=== PATIENT | female | born 1990 | race Caucasian/White ===

== ENCOUNTER 2016-08-22 18:09 | Emergency (ER) | payer BC, OTHER ==
[~2016-08-22] VITALS: Ht 149.9 cm; Wt 63.9 kg
[~2016-08-22 18:09] MED LIST: CARV3.122 PO; OXCA300T PO
[2016-08-22 18:17] VITALS: TEMP 36.5; Ht 149.9 cm; Wt 63.9 kg
[2016-08-22] MEDS ORDERED: SODIUM CHLORIDE 0.9% 1000ML 500 ML IV STA (18:32)
[2016-08-22 18:41] LABS: BASO % 0.2 %; BASO ABS # 0.02 K/uL (0-0.2); COMPLETE YES; EOS % 1.4 %; HEMATOCRIT 38.6 % (37-47); IG% 0.5 %; LYMPH % 28.9 %; MEAN CORPUSCULAR HEMOGLOBIN 27.8 pg (25-34); MEAN CORPUSCULAR HGB CONC 33.9 g/dl (32-36); MONO % 5.7 %; NEUT % 63.3 %; PLATELET COUNT 304 K/uL (130-400); RED BLOOD COUNT 4.71 M/uL (4.2-5.4); WHITE BLOOD COUNT 10.72 K/uL (4.8-10.8)
[2016-08-22] MEDS ORDERED: PREN1TAB51 PO (18:49)
[2016-08-22] MEDS ORDERED: METO50TA16 PO (18:49)
[2016-08-22] MEDS ORDERED: IBUP-1050 PO (18:53)
[2016-08-22 18:57] LABS: BUN/CREATININE RATIO 25.5 (10-20); CALCIUM 9.5 mg/dl (8.5-10.1); CREATININE 0.64 mg/dl (0.60-1.20); POTASSIUM 3.6 mmol/L (3.5-5.1)
[2016-08-22 19:00] LABS: ALB/GLOB RATIO 1.3 (0.9-2)
--- NOTE | 2016-08-22 19:08 | EMERGENCY ROOM VISIT NOTE ---
History Report prepared by Gregory: Sinan Camarena Under the Supervision of: Dr. Flex Cruz M.D. First contact with patient: 18:27 Chief Complaint: FLANK PAIN Stated Complaint: RT SIDED ABD/BACK PAIN History of Present Illness The patient is a 26 year old female who presents to the Emergency Room with complaints of worsening RLQ abdominal pain beginning four days ago. She states that her pain radiates into her side and right lower back. She has a history of multiple kidney stones, and ovarian cysts. The patient denies any vaginal discharge, fevers, vomiting, urinary symptoms. She rates her current pain as a 7 /10. She has taken Tylenol and Motrin for her symptoms but has seen no relief. The patient describes her pain as "sharp". She notes that she is currently breast feeding. She also complains of nausea. The patient notes that she began getting her menstrual period again 3 months ago, and states that her periods since have involved very heavy bleeding. She has a history of a tubal ligation. Source of History: patient Onset: Four days ago Position: abdomen (RLQ) Symptom Intensity: 7/10 Quality: sharp Timing: worsening Associated Symptoms: + nausea, No fevers, No vomiting, No urinary symptoms Note: The patient denies any vaginal discharge. Review of Systems See HPI for pertinent positives & negatives. A total of 10 systems reviewed and were otherwise negative. Past Medical & Surgical Medical Problems: (1) Seizure Surgical Problems: (1) H/O adenoidectomy (2) Hx of section (3) Hx of tonsillectomy (4) [place] teeth extracted Family History Cancer Diabetes mellitus Gallbladder disease Heart disease Hypertension Kidney disease Kidney stones Lung disease Social History Smoking Status: Former Smoker Marital Status: single Housing Status: unknown Occupation Status: employed Current/Historical Medications Scheduled Metoprolol Tartrate (Lopressor) (Lopressor), 50 MG PO DAILY Vit W/ Ferrous Fumara (Pnv Plus Multivi), 1 TAB PO DAILY Scheduled PRN Ibuprofen (Advil), 600 MG PO Q6H PRN for Pain Allergies Coded Allergies: Amoxicillin (Verified Allergy, Intermediate, HIVES, 08/22/16) Cefaclor (Verified Allergy, Intermediate, HIVES, 08/22/16) Clavulanic Acid (Verified Allergy, Intermediate, HIVES, 08/22/16) Zolpidem (Verified Allergy, Intermediate, HALLUCINATIONS, 08/22/16) Cephalexin (Verified Allergy, Unknown, Hives, 08/22/16) Physical Exam Vital Signs Date Time Temp Pulse Resp B/P (MAP) Pulse Ox O2 Delivery O2 Flow Rate FiO2 08/22/16 20:53 80 18 113/85 100 Room Air 08/22/16 18:17 36.5 86 18 128/76 99 Room Air Physical Exam GENERAL: Patient is in no acute distress. HEENT: No acute trauma, normocephalic atraumatic, mucous membranes moist, no nasal congestion, no scleral icterus. NECK: No stridor, no adenopathy, no meningismus, trachea is midline. LUNGS: Clear to auscultation bilaterally, no wheeze, no rhonchi, breath sounds equal. HEART: Without murmurs gallops or rubs, regular rate and rhythm. ABDOMEN: Soft, bowel sounds positive, no hernias, no peritonitis, mildly tender in the right low pelvis. BACK: No flank discomfort with percussion. EXTREMITIES: No cyanosis or edema, full range of motion of all the joints without pain or difficulty, no signs for acute trauma. NEUROLOGIC: Oriented x 3, no acute motor or sensory deficits, no focal weakness. SKIN: No rash, no jaundice, no diaphoresis. Medical Decision & Procedures ER Provider Diagnostic Interpretation: US results as stated below per my review and radiologist interpretation: ULTRASOUND KIDNEYS AND BLADDER FINDINGS: Kidneys: The kidneys are normal in size and echotexture. The right kidney measures 11.7 x 4.6 x 5.6 cm and the left kidney measures 12.7 x 5.6 x 6.0 cm. There is no hydronephrosis. No shadowing renal calculi are identified. There is no sonographic evidence of contour deforming renal mass lesion. No perinephric fluid is identified. Bladder: The bladder is normal in appearance. Bilateral ureteral jets were seen. IMPRESSION: 1. The kidneys are normal in size and without hydronephrosis. 2. The bladder is normal in appearance Electronically signed by: Flex Carbajal M.D. ULTRASOUND OF THE PELVIS FINDINGS: Uterus: The uterus is normal in size and echotexture, measuring 10.0 x 4.2 x 5.7 cm. Small Nabothian cysts are incidentally noted. Endometrium: The endometrium is thickened, measuring up to 1.5 cm. Endometrium is otherwise normal in appearance. Ovaries: The ovaries are normal in size and morphology. The right ovary measures 4.5 x 2.6 x 3.3 cm and the left ovary measures 4.2 x 1.6 x 2.1 cm. Numerous small ovarian follicles are noted. Normal Doppler waveforms are shown within both ovaries. Pelvis: There is trace free fluid in the cul-de-sac. No concerning adnexal lesion is seen. IMPRESSION: 1. No acute sonographic abnormality is identified in the pelvis. 2. The endometrial stripe is thickened measuring up to 1.5 cm. This is likely related to the phase of the patient's cycle. 3. Trace free fluid in cul-de-sac is likely within physiologic limits. Electronically signed by: Flex Carbajal M.D. Laboratory Results 08/22/16 18:30 Red Blood Count 4.71, Mean Corpuscular Volume 82.0, Mean Corpuscular Hemoglobin 27.8, Mean Corpuscular Hemoglobin Concent 33.9, Mean Platelet Volume 10.0, Neutrophils (%) (Auto) 63.3, Lymphocytes (%) (Auto) 28.9, Monocytes (%) (Auto) 5.7, Eosinophils (%) (Auto) 1.4, Basophils (%) (Auto) 0.2, Neutrophils # (Auto) 6.79, Lymphocytes # (Auto) 3.10, Monocytes # (Auto) 0.61, Eosinophils # (Auto) 0.15, Basophils # (Auto) 0.02 08/22/16 18:30 Test 08/22/16 18:30 08/22/16 19:00 White Blood Count 10.72 K/uL (4.8-10.8) Red Blood Count 4.71 M/uL (4.2-5.4) Hemoglobin 13.1 g/dL (12.0-16.0) Hematocrit 38.6 % (37-47) Mean Corpuscular Volume 82.0 fL (80-100) Mean Corpuscular Hemoglobin 27.8 pg (25-34) Mean Corpuscular Hemoglobin Concent 33.9 g/dl (32-36) Platelet Count 304 K/uL (130-400) Mean Platelet Volume 10.0 fL (7.4-10.4) Neutrophils (%) (Auto) 63.3 % Lymphocytes (%) (Auto) 28.9 % Monocytes (%) (Auto) 5.7 % Eosinophils (%) (Auto) 1.4 % Basophils (%) (Auto) 0.2 % Neutrophils # (Auto) 6.79 K/uL (1.4-6.5) Lymphocytes # (Auto) 3.10 K/uL (1.2-3.4) Monocytes # (Auto) 0.61 K/uL (0.11-0.59) Eosinophils # (Auto) 0.15 K/uL (0-0.5) Basophils # (Auto) 0.02 K/uL (0-0.2) RDW Standard Deviation 39.6 fL (36.4-46.3) RDW Coefficient of Variation 13.1 % (11.5-14.5) Immature Granulocyte % (Auto) 0.5 % Immature Granulocyte # (Auto) 0.05 K/uL (0.00-0.02) Anion Gap 10.0 mmol/L (3-11) Est Creatinine Clear Calc Drug Dose 109.2 ml/min Estimated GFR () 143.7 Estimated GFR (Non- 124.0 BUN/Creatinine Ratio 25.5 (10-20) Calcium Level 9.5 mg/dl (8.5-10.1) Total Bilirubin 0.2 mg/dl (0.2-1) Aspartate Amino Transf (AST/SGOT) 10 U/L (15-37) Alanine Aminotransferase (ALT/SGPT) 19 U/L (12-78) Alkaline Phosphatase 104 U/L (45-117) Total Protein 7.9 gm/dl (6.4-8.2) Albumin 4.4 gm/dl (3.4-5.0) Globulin 3.5 gm/dl (2.5-4.0) Albumin/Globulin Ratio 1.3 (0.9-2) Lipase 136 U/L (73-393) Urine Color YELLOW Urine Appearance CLEAR (CLEAR) Urine pH 5.5 (4.5-7.5) Urine Specific [place] 1.010 (1.000-1.030) Urine Protein NEG (NEG) Urine Glucose (UA) NEG (NEG) Urine Ketones NEG (NEG) Urine Occult Blood NEG (NEG) Urine Nitrite NEG (NEG) Urine Bilirubin NEG (NEG) Urine Urobilinogen NEG (NEG) Urine Leukocyte Esterase NEG (NEG) Urine Test NEG (NEG) Laboratory results reviewed by me. Medications Administered Medications (Trade) Dose Ordered Sig/Jamaal Route Start Time Stop Time Status Last Admin Dose Admin Sodium Chloride 500 ml @ 999 mls/hr Q31M STAT IV 08/22/16 18:32 08/22/16 19:02 DC 08/22/16 18:32 999 MLS/HR ED Course 182: The patient was evaluated in room C2B. A complete history and physical exam was performed. 183: Ordered Sodium Chloride 500 ml @ 999 mls/hr IV. 2100: Reevaluated the patient. Discussed results and discharge instructions: she verbalized understanding and agreement. The patient is ready for discharge. Medical Decision The patient is a 26 year old female who presents to the ED with complaints of RLQ abdominal pain radiating into her back. Differential diagnoses considered include renal colic, UTI, pyelonephritis, ovarian cyst, musculoskeletal pain, hernia, and appendicitis. There is no leukocytosis or concerning anemia. No significant electrolyte abnormality, kidney failure or hepatitis. There is no pancreatitis. Urinalysis does not show hematuria or infection. testing is negative. Pelvic ultrasound shows no ovarian cyst or torsion. Renal ultrasound shows no hydronephrosis, bilateral ureteral jets were seen. The patient's pain is minimal, she did not want anything for discomfort. She has been using Motrin at home. On exam, she was not febrile or toxic, there was no peritonitis. The patient would like to go home, she will return if worsening. I discussed the possibility of appendicitis with her. She has agreed to come back if not improving. At this point, the cause for the pain is unclear, I suppose she may have ruptured an ovarian cyst, she feels this is what happened. Impression Primary Impression: Right sided abdominal pain Additional Impression: Right flank pain Scribe Attestation The scribe's documentation has been prepared under my direction and personally reviewed by me in its entirety. I confirm that the note above accurately reflects all work, treatment, procedures, and medical decision making performed by me. Departure Information Dispostion Home / Self-Care Referrals Kael Yanes M.D.([facility]) (PCP) Forms HOME CARE DOCUMENTATION FORM, IMPORTANT VISIT INFORMATION Patient Instructions My [facility] Additional Instructions motrin/tylenol for pain heat may help rest return for worsening pain, vomiting or fever as appendicitis is a possibility as we discussed lab testing today and imaging was all ok Problem Qualifiers
[2016-08-22 19:20] LABS: URINE APPEARANCE CLEAR (CLEAR); URINE BILIRUBIN NEG (NEG); URINE COLOR YELLOW; URINE NITRITE NEG (NEG); URINE PH 5.5 (4.5-7.5); UROBILINOGEN NEG (NEG); ZZUR CULT IF INDIC CLEAN CATCH NO
[2016-08-22 19:27] LABS: MANUAL MICROSCOPIC REQUIRED? NO; REVIEW REQ? NO
--- NOTE | 2016-08-22 20:49 | DIAGNOSTIC IMAGING REPORT ---
ULTRASOUND OF THE PELVIS CLINICAL HISTORY: Right pelvic pain. Nausea and vomiting. Diarrhea. COMPARISON STUDY: No priors. TECHNIQUE: Real-time, grayscale, and color flow sonography of the pelvis is performed both transabdominally and endovaginally. Images are reviewed in the transverse and longitudinal planes. FINDINGS: Uterus: The uterus is normal in size and echotexture, measuring 10.0 x 4.2 x 5.7 cm. Small Nabothian cysts are incidentally noted. Endometrium: The endometrium is thickened, measuring up to 1.5 cm. Endometrium is otherwise normal in appearance. Ovaries: The ovaries are normal in size and morphology. The right ovary measures 4.5 x 2.6 x 3.3 cm and the left ovary measures 4.2 x 1.6 x 2.1 cm. Numerous small ovarian follicles are noted. Normal Doppler waveforms are shown within both ovaries. Pelvis: There is trace free fluid in the cul-de-sac. No concerning adnexal lesion is seen. IMPRESSION: 1. No acute sonographic abnormality is identified in the pelvis. 2. The endometrial stripe is thickened measuring up to 1.5 cm. This is likely related to the phase of the patient's cycle. 3. Trace free fluid in cul-de-sac is likely within physiologic limits. Electronically signed by: Flex Carbajal M.D. 08/22/2016 8:48 PM Dictated Date/Time: 08/22/2016 8:45 PM
--- NOTE | 2016-08-22 20:50 | DIAGNOSTIC IMAGING REPORT ---
ULTRASOUND KIDNEYS AND BLADDER CLINICAL HISTORY: Right flank pain. COMPARISON STUDY: No priors. TECHNIQUE: Real-time, grayscale, and color flow sonography of the kidneys and bladder is performed. Images are reviewed in the transverse and longitudinal planes. FINDINGS: Kidneys: The kidneys are normal in size and echotexture. The right kidney measures 11.7 x 4.6 x 5.6 cm and the left kidney measures 12.7 x 5.6 x 6.0 cm. There is no hydronephrosis. No shadowing renal calculi are identified. There is no sonographic evidence of contour deforming renal mass lesion. No perinephric fluid is identified. Bladder: The bladder is normal in appearance. Bilateral ureteral jets were seen. IMPRESSION: 1. The kidneys are normal in size and without hydronephrosis. 2. The bladder is normal in appearance Electronically signed by: Flex Carbajal M.D. 08/22/2016 8:49 PM Dictated Date/Time: 08/22/2016 8:48 PM
[2016-08-22 20:53] VITALS: BP 113/85; PULSE 80; O2SAT 100
== END 2016-08-22 21:11 | disposition home or self-care (01) ==
LOC: C.EDB 18:10 → C.EDC 21:11
DX: R10.31 Right lower quadrant pain (principal); M54.5 Low back pain; Z87.442 Personal history of urinary calculi; Z98.51 Tubal ligation status; Z87.891 Personal history of nicotine dependence; Z83.3 Family history of diabetes mellitus; Z82.49 Family history of ischemic heart disease and other diseases of the circulatory system; Z84.1 Family history of disorders of kidney and ureter

== ENCOUNTER 2017-01-16 12:58 | Emergency (ER) | payer OTHER ==
[~2017-01-16] VITALS: Ht 149.9 cm; Wt 66.7 kg
[~2017-01-16 12:58] MED LIST changes: -CARV3.122 PO; +IBUP-1050 PO; +METO50TA16 PO; -OXCA300T PO; +PREN1TAB51 PO
[2017-01-16 13:02] VITALS: TEMP 36.5; Ht 149.9 cm; Wt 66.7 kg
[2017-01-16 13:26] VITALS: O2SAT 96
[2017-01-16] MEDS ORDERED: RANI300T PO (13:41)
[2017-01-16] MEDS ORDERED: PIND10TA PO (13:41)
[2017-01-16] MEDS ORDERED: SODIUM CHLORIDE 0.9% 500ML 500 ML IV STA (14:15)
[2017-01-16 14:56] LABS: BASO % 0.1 %; BASO ABS # 0.01 K/uL (0-0.2); COMPLETE YES; EOS % 0.9 %; HEMATOCRIT 37.4 % (37-47); IG% 0.6 %; LYMPH % 21.2 %; LYMPH ABS # 2.22 K/uL (1.2-3.4); MEAN CELL VOLUME 82.6 fL (80-100); MEAN CORPUSCULAR HEMOGLOBIN 28.9 pg (25-34); MEAN PLATELET VOLUME 10.7 fL (7.4-10.4); NEUT % 71.2 %; PLATELET COUNT 276 K/uL (130-400); RED BLOOD COUNT 4.53 M/uL (4.2-5.4); WHITE BLOOD COUNT 10.47 K/uL (4.8-10.8)
[2017-01-16 15:06] LABS: ALT/SGPT 21 U/L (12-78); BLOOD UREA NITROGEN 14 mg/dl (7-18); BUN/CREATININE RATIO 18.9 (10-20); CALCIUM 8.8 mg/dl (8.5-10.1); CARBON DIOXIDE 24 mmol/L (21-32); CHLORIDE 104 mmol/L (98-107); CREATININE 0.75 mg/dl (0.60-1.20); GLUCOSE 100 mg/dl (70-99); POTASSIUM 3.3 mmol/L (3.5-5.1); SODIUM 139 mmol/L (136-145)
[2017-01-16 15:09] LABS: ALKALINE PHOSPHATASE 102 U/L (45-117); AST/SGOT 13 U/L (15-37)
--- NOTE | 2017-01-16 15:09 | EMERGENCY ROOM VISIT NOTE ---
History First contact with patient: 13:48 Chief Complaint: CARDIAC ASSESSMENT Stated Complaint: NEW HEART MEDS,CHEST PAIN,DIZZINESS,BLURRED VISION Nursing Triage Summary: Pt began taking new heart med this am. "Having chest pain, vision blurry, can't catch breath, heart jumping all around, having chest pain. I feel like I'm drunk" Bilateral chest pain. Pindolol. Was on Metoprolol. History of Present Illness The patient is a 26 year old female who presents to the Emergency Room with complaints of chest tightness, shortness of breath, lightheadedness, and blurred vision that started abruptly around 9:30 AM this morning. Patient states that she took her first dose of a new heart medication, pindolol, around 9am and her symptoms started shortly after taking this. She states she was feeling completely well prior to taking this medication. She had been previously taking metoprolol twice a day, which she was prescribed to manage her tachycardia and frequent PVCs. 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 She states that she recently had a Holter monitor that showed that she was still having runs of PVCs, and her dietetic tech felt that the metoprolol was not working. She states he wanted to switch her to a different medication, but her insurance did not cover it, so she was placed on the pindolol. Today was her first dose of this medication. Her last dose of metoprolol was last night. She states that her symptoms were severe for a few hours, and at one point she felt like she might pass out, but denies any syncope. She also states "it made me feel like I'm drunk." She currently states that her chest pain, shortness of breath, and blurred vision have fully resolved. She states that she still feels slightly dizzy, especially with position changes. Review of Systems A complete 10 point review of systems was reviewed with the patient with pertinent positives and negatives as per history of present illness. All else were negative. Past Medical/Surgical History Medical Problems: (1) Seizure Surgical Problems: (1) H/O adenoidectomy (2) Hx of section (3) Hx of tonsillectomy (4) [place] teeth extracted Family History Cancer Diabetes mellitus Gallbladder disease Heart disease Hypertension Kidney disease Kidney stones Lung disease Social History Smoking Status: Former Smoker Marital Status: single Housing Status: unknown Occupation Status: employed Current/Historical Medications Scheduled Pindolol (Visken), 10 MG PO BID Ranitidine Hcl (Zantac), 300 MG PO BID Allergies Reviewed in chart Physical Exam Vital Signs Date Time Temp Pulse Resp B/P (MAP) Pulse Ox O2 Delivery O2 Flow Rate FiO2 01/16/17 17:08 91 112/67 100 01/16/17 15:30 97/61 01/16/17 15:28 81 14 100 01/16/17 15:08 100/77 01/16/17 14:39 87 18 110/49 100 Room Air 01/16/17 14:39 110/49 01/16/17 14:38 104/67 01/16/17 14:37 106/61 01/16/17 14:36 87 106/61 100 99/62 104/67 01/16/17 14:30 99/56 01/16/17 14:28 86 16 99 01/16/17 14:15 101/70 01/16/17 14:00 97/58 01/16/17 13:58 83 15 100 01/16/17 13:30 101/64 01/16/17 13:29 102 01/16/17 13:29 97 18 106/61 98 Room Air 01/16/17 13:28 94 17 97 01/16/17 13:26 106/61 01/16/17 13:26 96 Room Air 01/16/17 13:02 36.5 95 18 115/80 100 Room Air Physical Exam CONSTITUTIONAL: No acute distress, but does appear anxious. Well appearing and well nourished. Alert and oriented X 4. HEENT: Normocephalic, atraumatic. Pupils equal, round and reactive to light, EOMI. TMs normal. Pharynx normal. NECK: Supple, full active range of motion without discomfort. RESPIRATORY: Clear to auscultation bilaterally with no wheezing, crackles, rhonchi or stridor. Equal expansion bilaterally. CARDIOVASCULAR: Regular rate and rhythm with no murmurs, rubs or gallops. Normal peripheral perfusion. No edema. GASTROINTESTINAL: Soft, nontender, nondistended. Bowel sounds present in all quadrants. MUSCULOSKELETAL: Full range of motion of all joints without discomfort. No calf swelling or tenderness. INTEGUMENTARY: No rash or other significant dermatologic conditions noted. NEUROLOGIC: Cranial nerves II-XII grossly intact. No focal neurologic deficits noted. Normal strength and sensation, normal speech, normal coordination, normal gait. Medical Decision & Procedures ER Provider Diagnostic Interpretation: TWO VIEW CHEST CLINICAL HISTORY: Atypical chest pain. FINDINGS: PA and lateral chest radiographs are obtained. No prior studies are available for comparison at the time of dictation. The cardiomediastinal silhouette is unremarkable. The lungs and pleural spaces are clear. There is no pneumothorax. The bony thorax appears intact. IMPRESSION: No active disease in the chest. Laboratory Results 01/16/17 13:30 Red Blood Count 4.53, Mean Corpuscular Volume 82.6, Mean Corpuscular Hemoglobin 28.9, Mean Corpuscular Hemoglobin Concent 35.0, Mean Platelet Volume 10.7, Neutrophils (%) (Auto) 71.2, Lymphocytes (%) (Auto) 21.2, Monocytes (%) (Auto) 6.0, Eosinophils (%) (Auto) 0.9, Basophils (%) (Auto) 0.1, Neutrophils # (Auto) 7.46, Lymphocytes # (Auto) 2.22, Monocytes # (Auto) 0.63, Eosinophils # (Auto) 0.09, Basophils # (Auto) 0.01 01/16/17 13:30 Test 01/16/17 13:30 01/16/17 15:23 White Blood Count 10.47 K/uL (4.8-10.8) Red Blood Count 4.53 M/uL (4.2-5.4) Hemoglobin 13.1 g/dL (12.0-16.0) Hematocrit 37.4 % (37-47) Mean Corpuscular Volume 82.6 fL (80-100) Mean Corpuscular Hemoglobin 28.9 pg (25-34) Mean Corpuscular Hemoglobin Concent 35.0 g/dl (32-36) Platelet Count 276 K/uL (130-400) Mean Platelet Volume 10.7 fL (7.4-10.4) Neutrophils (%) (Auto) 71.2 % Lymphocytes (%) (Auto) 21.2 % Monocytes (%) (Auto) 6.0 % Eosinophils (%) (Auto) 0.9 % Basophils (%) (Auto) 0.1 % Neutrophils # (Auto) 7.46 K/uL (1.4-6.5) Lymphocytes # (Auto) 2.22 K/uL (1.2-3.4) Monocytes # (Auto) 0.63 K/uL (0.11-0.59) Eosinophils # (Auto) 0.09 K/uL (0-0.5) Basophils # (Auto) 0.01 K/uL (0-0.2) RDW Standard Deviation 38.0 fL (36.4-46.3) RDW Coefficient of Variation 12.6 % (11.5-14.5) Immature Granulocyte % (Auto) 0.6 % Immature Granulocyte # (Auto) 0.06 K/uL (0.00-0.02) Anion Gap 10.0 mmol/L (3-11) Est Creatinine Clear Calc Drug Dose 95.3 ml/min Estimated GFR () 128.4 Estimated GFR (Non- 110.8 BUN/Creatinine Ratio 18.9 (10-20) Calcium Level 8.8 mg/dl (8.5-10.1) Total Bilirubin 0.3 mg/dl (0.2-1) Direct Bilirubin < 0.1 mg/dl (0-0.2) Aspartate Amino Transf (AST/SGOT) 13 U/L (15-37) Alanine Aminotransferase (ALT/SGPT) 21 U/L (12-78) Alkaline Phosphatase 102 U/L (45-117) Total Protein 8.0 gm/dl (6.4-8.2) Albumin 4.2 gm/dl (3.4-5.0) Lipase 158 U/L (73-393) Bedside Troponin I < 0.030 ng/ml (0-0.045) Medications Administered Medications (Trade) Dose Ordered Sig/Jamaal Route Start Time Stop Time Status Last Admin Dose Admin Sodium Chloride 500 ml @ 999 mls/hr Q31M STAT IV 01/16/17 14:15 01/16/17 14:45 DC 01/16/17 14:41 999 MLS/HR ECG Indication: chest pain Rate (beats per minute): 88 Rhythm: normal sinus Findings: no acute ischemic change, no ectopy Comparison ECG Date: no prior available Medical Decision CC: Patient presenting with complaint of dizziness, shortness of breath, chest tightness Interpretation of Labs: No leukocytosis, no anemia, no significant electrolyte abnormality, normal renal function, normal liver enzymes and lipase. Troponin level negative 2, with the second being 6 hours after onset of her chest pain. Differential Diagnosis: Includes, but not limited to medication reaction, ACS, PE, pneumonia, CHF, dysrhythmia, anxiety, among others. Medication Reconciliation: I attest that I have personally reviewed the patient' s current medication list. Vital signs review: I reviewed the patient's vital signs and interpret them as follows: T: Afebrile; BP: Normotensive; HR: Within normal limits; RR: Within normal limits; Pulse Ox: Within normal limits on room air. Blood pressure screening: The patient was found to have normal blood pressure on screening and does not require follow-up for repeat blood pressure check. Summary: Patient was evaluated at bedside, history and physical exam performed. Patient is alert and oriented, no acute distress, resting calmly in the stretcher. Patient currently states that her symptoms of chest tightness, shortness of breath, and blurred vision or fully resolved. She states she still feels slightly dizzy with position changes, but this is much improved. Neurologic exam is intact with no focal findings. Heart sounds normal, lungs clear. No edema. Orders were placed at bedside for labs, UA, IV fluid bolus, EKG, chest x-ray to evaluate for cardiopulmonary disease. Patient discussed with Dr. Kaur, who agrees with my assessment and plan. PERC rule negative, I do not suspect a PE at this time. Labs reviewed as above, unremarkable. Negative troponin 6 hours after onset of chest tightness. EKG shows normal sinus rhythm with no acute ischemic changes, no previous EKG for comparison. Chest x-ray unremarkable. She is not orthostatic on vital signs. I spoke on the phone with Dr. Prado, patient's dietetic tech, who states patient has a long history of having this type of reaction to several different blood pressure medications, and has had her medications for her tachycardia changed multiple times due to this. He states her symptoms are unlikely to be caused by this new medication and he believes this is all related to anxiety. He did recommend that she stop the pindolol and resume the metoprolol for now, and will follow up with her in the office. Patient reassessed multiple times throughout ED stay, she continues to feel well with no return of her chest tightness or shortness of breath. She states her dizziness is also improved and she has been up ambulating without difficulty. I discussed all results with the patient and plan for discharge, as well as plan for follow-up with her dietetic tech. I also discussed plans for stopping the pindolol and resuming metoprolol, patient was comfortable with this plan. I discussed return precautions that should prompt the patient to return to the emergency department, she verbalized understanding. Patient was discharged home in stable condition and ambulatory. Impression Primary Impression: Light-headed feeling Additional Impression: Chest tightness Departure Information Dispostion Home / Self-Care Condition GOOD Referrals Pramod Nuñez M.D. (PCP) Patient Instructions ED Chest Pain NonCardiac, ED Near Syncope Vasovagal, Pending Sale To [facility] Additional Instructions You have been treated in the Emergency Department your lightheadedness, shortness of breath and chest tightness. Laboratory results and imaging studies have ruled out any emergent causes for your symptoms which would warrant admission or surgery. You should stop taking the pindolol. Go back to taking your metoprolol as previously prescribed. Drink plenty of fluids to stay well hydrated. Follow-up with your dietetic tech this week for continuing management of her medications. Return to the emergency department if your symptoms return or worsen, including severe chest pain, shortness of breath, severe dizziness or passing out, coughing up blood, or any other concerns. Work Instructions Return To Work: 1 day Problem Qualifiers
--- NOTE | 2017-01-16 15:16 | DIAGNOSTIC IMAGING REPORT ---
TWO VIEW CHEST CLINICAL HISTORY: Atypical chest pain. FINDINGS: PA and lateral chest radiographs are obtained. No prior studies are available for comparison at the time of dictation. The cardiomediastinal silhouette is unremarkable. The lungs and pleural spaces are clear. There is no pneumothorax. The bony thorax appears intact. IMPRESSION: No active disease in the chest. Electronically signed by: Flex Carbajal M.D. 01/16/2017 3:15 PM Dictated Date/Time: 01/16/2017 3:15 PM
[2017-01-16 17:08] VITALS: BP 112/67; PULSE 91; O2SAT 100
== END 2017-01-16 17:09 | disposition home or self-care (01) ==
LOC: C.EDB 13:00
DX: R42 Dizziness and giddiness (principal); R07.89 Other chest pain; R56.9 Unspecified convulsions; Z87.891 Personal history of nicotine dependence; Z83.3 Family history of diabetes mellitus; Z82.49 Family history of ischemic heart disease and other diseases of the circulatory system; Z83.6 Family history of other diseases of the respiratory system; Z84.1 Family history of disorders of kidney and ureter

== ENCOUNTER 2017-09-11 16:23 | Emergency (ER) | payer OTHER ==
[~2017-09-11] VITALS: Ht 149.9 cm; Wt 64.2 kg
[~2017-09-11 16:23] MED LIST changes: -IBUP-1050 PO; -METO50TA16 PO; +PIND10TA PO; -PREN1TAB51 PO; +RANI300T PO
[2017-09-11 16:27] VITALS: Ht 149.9 cm; Wt 64.2 kg
[2017-09-11] MEDS ORDERED: PROMETHAZINE HCL INJ 12.5 MG in SODIUM CHLORIDE 0.9% 50ML 50 ML IV STA (16:52)
[2017-09-11] MEDS ORDERED: KETOROLAC TROMETHAMINE 15 MG/ML VIAL IV STA (16:52)
[2017-09-11] MEDS ORDERED: METO50TA16 PO (17:04)
[2017-09-11] MEDS ORDERED: NITR-5 PO (17:04)
[2017-09-11] MEDS ORDERED: PANT40TA PO (17:04)
[2017-09-11] MEDS ORDERED: ONDA-170 PO (17:04)
[2017-09-11] MEDS ORDERED: BCPILLS PO (17:04)
[2017-09-11] MEDS ORDERED: SERT50TA PO (17:04)
[2017-09-11] MEDS ORDERED: PROMETHAZINE HCL INJ 25 MG/ML 1 ML VIAL ONE (17:20)
--- NOTE | 2017-09-11 17:32 | EMERGENCY ROOM VISIT NOTE ---
History First contact with patient: 16:31 Chief Complaint: ABDOMINAL PAIN Stated Complaint: RIGHT SIDED SEVERE AB PAIN, VOMITING History of Present Illness The patient is a 27 year old female who presents to the Emergency Room with complaints of right upper quadrant abdominal pain. The patient states that she was not feeling well all week. She had a few episodes of vomiting off and on. 2 days ago, she began having sharp pains in her abdomen. She states that she was up all night due to the pain and vomiting. She was seen yesterday at [place] emergency department and told that she probably had a problem with her gallbladder, but they were not able to do anything about it. She did have a CT scan at that time. She states that she did have some bacteria in her urine and was given an antibiotic. She has taken Azo [id number] but this has not helped her symptoms. She has had persistent pain in the right upper abdomen with radiation up to the right shoulder. She states the pain is sharp and rates the discomfort an 8/10. Nothing has made the pain better or worse. She has had vomiting and diarrhea. She has been unable to keep anything down. She was given Zofran ODT and has taken this without relief. She reports a history of C-sections, uterine ablation and tubal ligation. She also reports a history of arrhythmias and tachycardia induced cardiomyopathy, but states this is very well controlled with her medications. Review of Systems A complete 10 point review of systems was reviewed with the patient with pertinent positives and negatives as per history of present illness. All else were negative. Past Medical/Surgical History Medical Problems: (1) Seizure Surgical Problems: (1) H/O adenoidectomy (2) Hx of section (3) Hx of tonsillectomy (4) [place] teeth extracted Family History Cancer Diabetes mellitus Gallbladder disease Heart disease Hypertension Kidney disease Kidney stones Lung disease Social History Smoking Status: Former Smoker Marital Status: single Housing Status: unknown Occupation Status: employed Current/Historical Medications Scheduled Control Pills ( Control Pills), 1 TAB PO DAILY Metoprolol Tartrate (Lopressor) (Lopressor), 50 MG PO BID Nitrofurantoin Monohyd Macrocr (Macrobid), 100 MG PO BID Pantoprazole Sodium (Protonix), 40 MG PO DAILY Sertraline (Zoloft), 50 MG PO DAILY Scheduled PRN Ondansetron Hcl (Zofran), 8 MG PO DIRECTED PRN for Nausea Promethazine (Phenergan ), 1-2 TABS PO Q8 PRN for Nausea or Vomiting Physical Exam Vital Signs Date Time Temp Pulse Resp B/P (MAP) Pulse Ox O2 Delivery O2 Flow Rate FiO2 09/11/17 19:46 36.7 88 17 98/54 97 09/11/17 19:12 88 98/54 97 Room Air 09/11/17 16:27 36.7 86 17 114/77 98 Room Air Physical Exam VITALS: Vitals are noted on the nurse's note and reviewed by myself. Vital signs stable. GENERAL: This is a 27-year-old female, in no acute distress, nondiaphoretic, well-developed well-nourished. SKIN: The skin was without rashes. EARS: External auditory canals clear, tympanic membranes pearly keenan without erythema or effusion bilaterally. EYES: Pupils equal round and reactive to light and accommodation. MOUTH: Mucous membranes moist. HEART: Regular rate and rhythm without murmurs gallops or rubs. LUNGS: Clear to auscultation bilaterally without wheezes, rales or rhonchi. ABDOMEN: Positive bowel sounds x 4. Right upper quadrant tenderness, no guarding or rebound tenderness. Positive Avelar sign. No CVA tenderness. NEURO: Patient was alert and oriented to person place and time. Medical Decision & Procedures ER Provider Diagnostic Interpretation: GALLBLADDER-ABD LIMITED CLINICAL HISTORY: RUQ pain, vomiting nausea. Pain. TECHNIQUE: Ultrasound COMPARISON STUDY: 08/22/2016. FINDINGS: Normal gallbladder. Gallbladder wall 1 mm. Common bile duct 3 mm. Liver pancreas and right kidney are unremarkable. IMPRESSION: Normal study Laboratory Results 09/11/17 17:30 Red Blood Count 4.13, Mean Corpuscular Volume 82.8, Mean Corpuscular Hemoglobin 28.1, Mean Corpuscular Hemoglobin Concent 33.9, Mean Platelet Volume 10.4, Neutrophils (%) (Auto) 81.2, Lymphocytes (%) (Auto) 11.3, Monocytes (%) (Auto) 6.9, Eosinophils (%) (Auto) 0.3, Basophils (%) (Auto) 0.1, Neutrophils # (Auto) 6.98, Lymphocytes # (Auto) 0.97, Monocytes # (Auto) 0.59, Eosinophils # (Auto) 0.03, Basophils # (Auto) 0.01 09/11/17 17:30 Test 09/11/17 17:30 White Blood Count 8.60 K/uL (4.8-10.8) Red Blood Count 4.13 M/uL (4.2-5.4) Hemoglobin 11.6 g/dL (12.0-16.0) Hematocrit 34.2 % (37-47) Mean Corpuscular Volume 82.8 fL (80-100) Mean Corpuscular Hemoglobin 28.1 pg (25-34) Mean Corpuscular Hemoglobin Concent 33.9 g/dl (32-36) Platelet Count 236 K/uL (130-400) Mean Platelet Volume 10.4 fL (7.4-10.4) Neutrophils (%) (Auto) 81.2 % Lymphocytes (%) (Auto) 11.3 % Monocytes (%) (Auto) 6.9 % Eosinophils (%) (Auto) 0.3 % Basophils (%) (Auto) 0.1 % Neutrophils # (Auto) 6.98 K/uL (1.4-6.5) Lymphocytes # (Auto) 0.97 K/uL (1.2-3.4) Monocytes # (Auto) 0.59 K/uL (0.11-0.59) Eosinophils # (Auto) 0.03 K/uL (0-0.5) Basophils # (Auto) 0.01 K/uL (0-0.2) RDW Standard Deviation 40.3 fL (36.4-46.3) RDW Coefficient of Variation 13.2 % (11.5-14.5) Immature Granulocyte % (Auto) 0.2 % Immature Granulocyte # (Auto) 0.02 K/uL (0.00-0.02) Urine Color ORANGE Urine Appearance CLEAR (CLEAR) Urine pH (4.5-7.5) Urine Specific [place] 1.021 (1.000-1.030) Urine Protein NEG (NEG) Urine Glucose (UA) (NEG) Urine Ketones (NEG) Urine Occult Blood (NEG) Urine Nitrite (NEG) Urine Bilirubin (NEG) Urine Urobilinogen (NEG) Urine Leukocyte Esterase (NEG) Urine RBC 0-4 /hpf (0-4) Urine WBC 0 /hpf (0-5) Urine Epithelial Cells >30 /lpf (0-5) Urine Bacteria 1+ (NEG) Urine Mucus (NONE PRSENT) Anion Gap 9.0 mmol/L (3-11) Est Creatinine Clear Calc Drug Dose 105.3 ml/min Estimated GFR () 141.3 Estimated GFR (Non- 121.9 BUN/Creatinine Ratio 15.9 (10-20) Calcium Level 8.4 mg/dl (8.5-10.1) Total Bilirubin 0.3 mg/dl (0.2-1) Aspartate Amino Transf (AST/SGOT) 18 U/L (15-37) Alanine Aminotransferase (ALT/SGPT) 25 U/L (12-78) Alkaline Phosphatase 79 U/L (45-117) Total Protein 7.6 gm/dl (6.4-8.2) Albumin 3.9 gm/dl (3.4-5.0) Globulin 3.7 gm/dl (2.5-4.0) Albumin/Globulin Ratio 1.1 (0.9-2) Lipase 151 U/L (73-393) Human Chorionic Gonadotropin, Qual NEG (NEG) Medications Administered Medications (Trade) Dose Ordered Sig/Jamaal Route Start Time Stop Time Status Last Admin Dose Admin Ketorolac Tromethamine (Toradol Inj) 15 mg NOW STAT IV 09/11/17 16:52 09/11/17 16:54 DC 09/11/17 17:26 15 MG Promethazine HCl (Phenergan Inj) 25 mg STK-MED ONCE .ROUTE 09/11/17 17:20 09/11/17 17:21 DC 09/11/17 17:29 12.5 MG ED Course The patient was evaluated as above. Labs were drawn and IV access was obtained. Patient was medicated with 15 mg Toradol and 12.5 mg Phenergan. Right upper quadrant ultrasound was performed and read by radiology as above. Patient was reevaluated and reported she was feeling much better. Discharge instructions were reviewed with the patient. The patient verbalized understanding of my assessment and treatment plan and was discharged home in good condition. Medical Decision Differential diagnosis includes acute cholecystitis, choledocholithiasis, cholangitis, pancreatitis, gastroenteritis, gastritis, appendicitis, among others. The patient is a 27-year-old female who presents today complaining of right upper quadrant abdominal pain. Labs revealed no leukocytosis, anemia or concerning electrolyte abnormalities. LFTs within normal limits. Lipase was not elevated. Urinalysis was not suggestive of infection. Right upper quadrant ultrasound showed no acute findings. Patient had a CT performed yesterday. Her [place] ED records were obtained and reviewed. The patient had a CT scan yesterday which was negative for any acute findings. As the patient also does have vomiting and diarrhea, I feel this is very likely to be an acute gastroenteritis. She felt much better after receiving Toradol and Phenergan. She was given a prescription for Phenergan. She was advised to follow-up with her PCP this week for recheck. She will return for any worsening symptoms. The patient's case was reviewed with Dr. Lowery, ED attending physician, who agreed with my assessment and treatment plan. Based on the patient's presentation and work up, I feel the patient is stable for outpatient treatment. The patient was educated to return to the emergency department for any worsening of their current condition or new/concerning symptoms. She will follow up with her PCP. Medication Reconcilliation Current Medication List: was personally reviewed by me Blood Pressure Screening Patient's blood pressure: Normal blood pressure Impression Primary Impression: Right upper quadrant abdominal pain Departure Information Dispostion Home / Self-Care Condition GOOD Prescriptions Promethazine (Phenergan ) 12.5 Mg Tab 1-2 TABS PO Q8 Y for Nausea or Vomiting, #12 TAB Prov: Monae Hyde .STEVEN 09/11/17 Referrals Pramod Nuñez M.D. (PCP) Patient Instructions My [facility] Additional Instructions You have been treated in the Emergency Department for your Abdominal Pain. Laboratory results and imaging studies have ruled out any emergent causes for your abdominal pain which would warrant admission or surgery. You have been prescribed Phenergan to be used for any nausea or vomiting. Take as prescribed, 12.5-25 mg every 8 hours as needed. For pain control, you can use the following [id number] medicines (if >12 yo): - Regular strength (325mg/tab) Tylenol (acetaminophen) 2 tabs every 4-6 hours as needed. Do not exceed 12 tablets in a 24 hour period. Avoid taking more than 4 grams (4000 mg) of Tylenol per day. This includes any other sources of acetaminophen you may take on a regular basis. - Regular strength (200 mg/tab) Advil (ibuprofen) 1-2 tabs every 4-6 hours as needed. Do not exceed a dose of 3200 mg per day. Drink plenty of water and stay well hydrated. As with any trip to the Emergency Department, you should follow-up with your Primary Care Provider from today's visit. Return to the emergency department if your symptoms persist despite treatment plan outlined above or if the following symptoms occur: increased fevers, chills , worsening nausea/vomiting, blood in your stool or urine.
[2017-09-11 17:45] LABS: BASO % 0.1 %; BASO ABS # 0.01 K/uL (0-0.2); EOS % 0.3 %; EOS ABS # 0.03 K/uL (0-0.5); HEMATOCRIT 34.2 % (37-47); HEMOGLOBIN 11.6 g/dL (12.0-16.0); IG# 0.02 K/uL (0.00-0.02); LYMPH % 11.3 %; LYMPH ABS # 0.97 K/uL (1.2-3.4); MEAN CELL VOLUME 82.8 fL (80-100); MEAN CORPUSCULAR HEMOGLOBIN 28.1 pg (25-34); MEAN CORPUSCULAR HGB CONC 33.9 g/dl (32-36); MEAN PLATELET VOLUME 10.4 fL (7.4-10.4); MONO % 6.9 %; MONO ABS # 0.59 K/uL (0.11-0.59); NEUT % 81.2 %; NEUT ABS # 6.98 K/uL (1.4-6.5); PLATELET COUNT 236 K/uL (130-400); RED CELL DISTRIBUTION WIDTH CV 13.2 % (11.5-14.5); RED CELL DISTRIBUTION WIDTH SD 40.3 fL (36.4-46.3)
[2017-09-11 18:06] LABS: ALBUMIN 3.9 gm/dl (3.4-5.0); CALCIUM 8.4 mg/dl (8.5-10.1); CREATININE 0.66 mg/dl (0.60-1.20); POTASSIUM 3.5 mmol/L (3.5-5.1); TOTAL PROTEIN 7.6 gm/dl (6.4-8.2)
--- NOTE | 2017-09-11 18:58 | DIAGNOSTIC IMAGING REPORT ---
GALLBLADDER-ABD LIMITED CLINICAL HISTORY: RUQ pain, vomiting nausea. Pain. TECHNIQUE: Ultrasound COMPARISON STUDY: 08/22/2016. FINDINGS: Normal gallbladder. Gallbladder wall 1 mm. Common bile duct 3 mm. Liver pancreas and right kidney are unremarkable. IMPRESSION: Normal study The above report was generated using voice recognition software. It may contain grammatical, syntax or spelling errors. Electronically signed by: Marco Antonio Weiss M.D. 09/11/2017 6:57 PM Dictated Date/Time: 09/11/2017 6:55 PM
[2017-09-11] MEDS ORDERED: PROM12.57 PO (19:23)
[2017-09-11] MEDS ORDERED: PHENERGAN 25MG HOMEPACK PO ONE (19:30)
[2017-09-11 19:46] VITALS: BP 98/54; PULSE 88; TEMP 36.7; O2SAT 97
--- NOTE | 2017-09-13 12:28 | Pharmacy Progress Note ---
ED Pharmacist Culture FollowUp Date of Service: Sep 13, 2017. Urine Cx is growing Lactobacillus. Pt was not dx with UTI when seen in the ER. She was not prescribed ABX. This bacteria is not a urinary pathogen and likely reflects normal tod that has contaminated specimen. No action required.
== END 2017-09-11 19:46 | disposition home or self-care (01) ==
LOC: C.EDB 16:24
DX: R10.11 Right upper quadrant pain (principal); R11.2 Nausea with vomiting, unspecified; R19.7 Diarrhea, unspecified; Z87.891 Personal history of nicotine dependence; Z80.9 Family history of malignant neoplasm, unspecified; Z83.3 Family history of diabetes mellitus; Z82.49 Family history of ischemic heart disease and other diseases of the circulatory system; Z84.1 Family history of disorders of kidney and ureter; Z83.6 Family history of other diseases of the respiratory system; Z83.79 Family history of other diseases of the digestive system; Z79.3 Long term (current) use of hormonal contraceptives; Z79.899 Other long term (current) drug therapy

== ENCOUNTER 2019-04-20 05:42 | Observation (INO) ==
--- NOTE | 2019-04-05 14:26 | PAT Medication Instructions ---
Medication Instructions Date of Service April 05, 2019 Home Medications Medication Instructions Recorded albuterol sulfate 90 mcg/actuation 1 - 2 puffs INH .COMPLEX PRN #8.5 01/25/19 aerosol inhaler gm ondansetron 4 mg disintegrating 4 mg TRANSLINGUAL Q6H PRN #30 tab 01/25/19 tablet pantoprazole 40 mg tablet,delayed 40 mg PO QAM #30 tab 02/15/19 release multivitamin 1 tab PO QAM albuterol sulfate 90 mcg/actuation aerosol inhaler 1 - 2 puffs INH .COMPLEX PRN ondansetron 4 mg disintegrating tablet 4 mg TRANSLINGUAL Q6H PRN pantoprazole 40 mg tablet,delayed release 40 mg PO QAM ascorbic acid (vitamin C) [Vitamin C] 500 mg PO QPM biotin 5,000 mcg PO QAM cholecalciferol (vitamin D3) [Vitamin D3] 400 unit PO QPM clonazepam 0.5 mg PO HS PRN metoprolol tartrate 50 - 75 mg PO BID venlafaxine [Effexor XR] 150 mg PO QAM vitamin B complex 1 tab PO QPM DO NOT take the morning of surgery multivitamin 1 tab PO QAM biotin 5,000 mcg PO QAM Take morning of surgery With a small sip of water, OTHERWISE NOTHING TO EAT OR DRINK AFTER MIDNIGHT: albuterol sulfate 90 mcg/actuation aerosol inhaler 1 - 2 puffs INH .COMPLEX PRN (if needed, and please bring with you to the hospital) ondansetron 4 mg disintegrating tablet 4 mg TRANSLINGUAL Q6H PRN (if needed) pantoprazole 40 mg tablet,delayed release 40 mg PO QAM metoprolol tartrate 50 - 75 mg PO BID venlafaxine [Effexor XR] 150 mg PO QAM Take evening before surgery albuterol sulfate 90 mcg/actuation aerosol inhaler 1 - 2 puffs INH .COMPLEX PRN (if needed) ondansetron 4 mg disintegrating tablet 4 mg TRANSLINGUAL Q6H PRN (if needed) ascorbic acid (vitamin C) [Vitamin C] 500 mg PO QPM cholecalciferol (vitamin D3) [Vitamin D3] 400 unit PO QPM clonazepam 0.5 mg PO HS PRN (if needed) metoprolol tartrate 50 - 75 mg PO BID vitamin B complex 1 tab PO QPM Other Notes If you have any questions please call us at [phone] or [phone] or [phone] or [phone]
--- NOTE | 2019-04-06 11:36 | Anesthesiology Consultation ---
Date of Service April 06, 2019 Assessment & Plan (1) Encounter for pre-operative examination: CHECK TEST AM DOS. Chart Review Chart Review: Acceptable Risk for Surgery and Patient seen in Pre Admission Testing Teaching & Discussion Instructed NPO after midnight before surgery, except medications with 15 cc of water. Medication instructions provided according to the PAT guidelines. History Surgery Operation Date: 04/02/19 07:30 Proposed Procedures p Robotic Total Laparoscopic Hysterectomy - Cecelia Shelton MD, FACOG Operation Date: 04/20/19 10:20 Proposed Procedures p Robotic Total Laparoscopic Hysterectomy - Cecelia Shelton MD, FACOG Height/Weight Height: 4 ft 11 in Weight: 64.5 kg Allergies Allergy/AdvReac Type Severity Reaction Status Date / Time levofloxacin Allergy Severe SHORTNESS Verified 04/06/19 10:20 OF BREATH amoxicillin [From Augmentin] Allergy Intermediate rash/hives Verified 04/06/19 10:20 cefaclor Allergy Intermediate HIVES Verified 04/06/19 10:20 cephalexin Allergy Intermediate Hives Verified 04/06/19 10:20 clavulanic acid Allergy Intermediate HIVES A Verified 04/06/19 10:20 CHILD FROM AUGMENTIN zolpidem Allergy Intermediate HALLUCINATI Verified 04/06/19 10:20 ONS diclofenac Allergy Unknown EDEMA Verified 04/06/19 10:20 Medications Home Medications Medication Instructions Recorded Confirmed Last Taken multivitamin 1 tab PO QAM 10/10/18 04/06/19 Unknown albuterol sulfate 90 mcg/actuation 1 - 2 puffs INH .COMPLEX PRN #8.5 01/25/19 04/06/19 Unknown aerosol inhaler gm ondansetron 4 mg disintegrating 4 mg TRANSLINGUAL Q6H PRN #30 tab 01/25/19 04/06/19 Unknown tablet pantoprazole 40 mg tablet,delayed 40 mg PO QAM #30 tab 02/15/19 04/06/19 Unknown release ascorbic acid (vitamin C) [Vitamin 500 mg PO QPM 03/28/19 04/06/19 Unknown C] biotin 5,000 mcg PO QAM 03/28/19 04/06/19 Unknown cholecalciferol (vitamin D3) 400 unit PO QPM 03/28/19 04/06/19 Unknown [Vitamin D3] clonazepam 0.5 mg PO HS PRN 03/28/19 04/06/19 Unknown metoprolol tartrate 50 - 75 mg PO BID 03/28/19 04/06/19 Unknown vitamin B complex 1 tab PO QPM 03/28/19 04/06/19 Unknown amoxicillin 500 mg capsule 500 mg PO BID 10 Days #20 cap 04/05/19 04/06/19 Unknown fluconazole 150 mg tablet 150 mg PO Q3D 0 Days #2 tab 04/05/19 04/06/19 Unknown prednisone 10 mg tablet See Rx Instructions PO DAILY #30 04/05/19 04/06/19 Unknown tab promethazine-DM 6.25 mg-15 mg/5 mL 5 ml PO Q6H PRN #100 ml 04/05/19 04/06/19 Unknown oral syrup venlafaxine 225 mg tablet,extended 225 mg PO DAILY #30 tab 04/05/19 04/06/19 Unknown release 24 hr budesonide-formoterol HFA 80 2 puffs INH BID #1 inhaler 04/06/19 04/06/19 Unknown mcg-4.5 mcg/actuation aerosol inhaler Past Medical History Medical History Adenomyosis Alopecia ANDROGENITIC Anxiety Breast mass, right (Resolved) Collapsed inclusion cyst under skin, no intervention planned. Depression Dysmenorrhea Fibrocystic disease of breast GERD (gastroesophageal reflux disease) History of kidney stones History of ovarian cyst History of reactive airway disease Just recently started on Symbicort for daily maintenance inhaler. Using albuterol a couple times per day as of 04/06, but patient is currently being treated for URI/sinusitis History of seizure x 1; 6 years ago; no longer on medication; 2/2 electrolyte imbalance - does not follow w/ neuro Premature atrial contraction Premature ventricular contractions Tachycardia follows w/ Dr. Jarrell [facility] [place]. Had workup for syncope/palpitations at age 19, had been on beta blockade ever since. Exercise / Class Metabolic Activity II 4-5 Yardwork/Stairs/Walk up hill Past Family History Family History Grandmother (Maternal) Family history of esophageal cancer Family history of diabetes mellitus Breast cancer Grandmother (Paternal) Breast cancer, Onset Age: 40 Grandfather (Maternal) Prostate cancer Aunt Breast cancer, Onset Age: 40 Maternal Past Surgical History Surgical History H/O tubal ligation H/O umbilical hernia repair no mesh History of ankle surgery RT- 2018 History of colonoscopy (Resolved) History of endometrial ablation (Resolved) History of esophagogastroduodenoscopy (EGD) (Resolved) History of loop electrical excision procedure (LEEP) 2017 History of shoulder surgery (Resolved) RT History of tonsillectomy and adenoidectomy (Resolved) History of wisdom tooth extraction (Resolved) Hx of section X3 Nausea and vomiting after administration of anesthetic agent Past Anesthesia History No Hx of Anesthesia Complications and No Family Hx of Anesthesia Complications History of PONV History of PONV (multiple episodes) and Hx of Motion Sickness Social History Smoking Status: Current every day smoker tobacco type: cigarettes Smoking cigarettes per day: 1/4-1/2 PK PER DAY Hx Alcohol Use: Yes Alcohol type: beer, wine and hard liquor alcohol intake frequency: a few times a month (if that) Hx Substance Use: No substance use type: does not use Review of Systems Pt denies any recent chest pain, shortness of breath, palpitations, fever. +URI/sinusitis, has been seen by PCP, on Amoxil and Medrol Dose Pac. Physical Exam Vital Signs BP: 109/74 P: 86bpm SPO2: 97% RA T: 97.9 F R: 18 ENMT Mouth: + chipped teeth (upper L incisor very small chip); no dental restorations and no loose teeth Thyromental Distance: > or= 3.5 Finger Breadths (5) Mallampati Class: I Tonsils surgically absent. Neck normal visual inspection; neck extension not limited Respiratory normal respiratory effort Auscultation: lungs clear to auscultation bilaterally Cardiovascular Rate/Rhythm: regular rate and regular rhythm Heart Sounds: no murmur Testing Laboratory Results Blood Type B Positive 04/06/19 11:45 Antibody Screen NEGATIVE 04/06/19 11:45 03/18/19 WBC: 8.87 H/H: 13.0/37.0 PLATELETS: 252 SODIUM: 139 POTASSIUM: 3.7 CHLORIDE: 111 CO2: 22 BUN: 12 CREATININE: 0.68 GLUCOSE: 92 Electrocardiogram Date: 09/21/18 Findings: + NSR @ (75 with sinus arrhythmia)
[2019-04-20] MEDS ORDERED: LR 15ML/HR IV SCH (06:00)
[2019-04-20] MEDS ORDERED: LACTATED RINGER'S 1,000 ML IV SCH (06:00)
[2019-04-20] MEDS ORDERED: SCOPOLAMINE 1.5 MG TDSY TD SCH (06:00)
[2019-04-20] MEDS ORDERED: GENTAMICIN SULFATE 100 MG in DEXTROSE 5% 100 ML IV SCH (06:00)
[2019-04-20 06:10] LABS: Basophils # (auto) 0.01 K/uL (0-0.2); Basophils % (auto) 0.1 %; Eosinophils # (auto) 0.13 K/uL (0-0.5); Eosinophils % (auto) 1.3 %; Hematocrit (blood only) 37.6 % (37-47); Hemoglobin 12.7 g/dL (12.0-16.0); Immature Granulocytes # (auto) 0.05 K/uL (0.00-0.02); Immature Granulocytes % (auto) 0.5 %; Lymphocytes # (auto) 2.68 K/uL (1.2-3.4); Lymphocytes % (auto) 27.4 %; Mean Corpuscular Hemoglobin 28.7 pg (25-34); Mean Corpuscular Volume 85.1 fL (80-100); Mean Platelet Volume 10.2 fL (7.4-10.4); Monocytes # (auto) 0.86 K/uL (0.11-0.59); Monocytes % (auto) 8.8 %; Neutrophils # (auto) 6.04 K/uL (1.4-6.5); Neutrophils % (auto) 61.9 %; Platelet Count 190 K/uL (130-400); RDW Coefficient of Variation 14.1 % (11.5-14.5); RDW Standard Deviation 43.2 fL (36.4-46.3); Red Blood Count 4.42 M/uL (4.2-5.4); White Blood Count 9.77 K/uL (4.8-10.8)
[2019-04-20 06:30] LABS: Mean Corpuscular Hgb Conc 33.8 g/dL (32-36)
[2019-04-20] MEDS ORDERED: LARYING-O-JET KIT (LTA) ONE (06:55)
[2019-04-20] MEDS ORDERED: GLYCOPYRROLATE 0.2 MG/ML VIAL ONE (06:55)
[2019-04-20] MEDS ORDERED: NEOSTIGMINE METHYLSULFATE 5 MG/5 ML SYR ONE (06:55)
[2019-04-20] MEDS ORDERED: PROPOFOL IV EMULSION 10 MG/ML 20 ML VIAL IV ONE (06:55)
[2019-04-20] MEDS ORDERED: HYDROmorphone INJ 2 MG/ML SYR/VIAL ONE (06:55)
[2019-04-20] MEDS ORDERED: ONDANSETRON INJ 2 MG/ML 2 ML VIAL ONE ×2 (06:55→09:42)
[2019-04-20] MEDS ORDERED: ROCURONIUM BROMIDE 10 MG/ML 5 ML VIAL ONE (06:55)
[2019-04-20] MEDS ORDERED: MIDAZOLAM HCL 1 MG/ML 2ML VIAL ONE (06:55)
[2019-04-20] MEDS ORDERED: DEXAMETHASONE SOD INJ 4 MG/ML VIAL ONE (06:55)
[2019-04-20] MEDS ORDERED: LIDOCAINE HCL 2% 2 ML VIAL/AMP(20MG/ML) INFIL ONE (06:55)
[2019-04-20] MEDS ORDERED: ACETAMINOPHEN 1000 MG/100 ML IV IV ONE (07:11)
--- NOTE | 2019-04-20 07:16 | History & Physical Bridge Note ---
Date of Service April 20, 2019 History & Physical Bridge Note I have examined the patient, reviewed the History & Physical and in the interval since the performance of the History & Physical I have noted the following changes of clinical significance: no changes noted
[2019-04-20] MEDS ORDERED: BUPIVACAINE 0.5 % 5 MG/1 ML MPF 30ML VIAL ONE (07:17)
[2019-04-20] MEDS: CLINDAMYCIN 600 MG/54 ML BAG IV SCH ×2 (07:23→08:10)
[2019-04-20] MEDS ORDERED: CLINDAMYCIN PHOS 300 MG/2 ML VIAL ONE (08:09)
[2019-04-20] MEDS ORDERED: CLINDAMYCIN PHOS 900 MG/6 ML VIAL IV SCH (08:30)
[2019-04-20] MEDS ORDERED: TISSEEL FIBRIN SEALANT 4ML TOP ONE (08:53)
[2019-04-20] MEDS ORDERED: METHYLENE BLUE 0.5% 10 ML VIAL IV SCH (09:15)
[2019-04-20] MEDS ORDERED: FUROSEMIDE 10 MG/ML 10 ML VIAL IV ONE (09:32)
[2019-04-20] MEDS ORDERED: METHYLENE BLUE 0.5% 10 ML VIAL ONE (09:32)
[2019-04-20] MEDS ORDERED: ACETAMINOPHEN 325 MG TAB PO PRN (09:53)
[2019-04-20] MEDS ORDERED: OXYCODONE/ACETAMINOPHEN 5mg/325mg TAB PO PRN (09:53)
[2019-04-20] MEDS ORDERED: PROMETHAZINE HCL 12.5 MG in SODIUM CHLORIDE 0.9% 50 ML IV PRN ×2 (09:53→10:49)
[2019-04-20] MEDS ORDERED: PROMETHAZINE HCL 25 MG in SODIUM CHLORIDE 0.9% 50 ML IV PRN (09:53)
[2019-04-20] MEDS ORDERED: MEPERIDINE HCL 50 MG/ML CARP IV PRN (09:53)
[2019-04-20] MEDS ORDERED: ONDANSETRON INJ 2 MG/ML 2 ML VIAL IV PRN ×2 (09:53→10:49)
[2019-04-20] MEDS ORDERED: MEPERIDINE HCL 25 MG/ML CARP/VIAL IV PRN (09:53)
--- NOTE | 2019-04-20 09:53 | Post Operative Brief Note ---
PG Immediate Post Op with CF Date of Surgery April 20, 2019 Pre & Post Diagnosis Operation Date: 04/02/19 07:30 <No data on this case meets the specified criteria> Operation Date: 04/20/19 07:30 Pre-Op Diagnosis: Dysmenorrhea, Dysfunctional Uterine Bleeding, Failed ablation Post-Op Diagnosis: Dysmenorrhea, Dysfunctional Uterine Bleeding, failed ablation I identified the patient and participated in the time-out.: Yes Procedure Operation Date: 04/02/19 07:30 <No data on this case meets the specified criteria> Operation Date: 04/20/19 07:30 Actual Procedures p Robotic Total Laparoscopic Hysterectomy, Bilateral Salpingo-oopherectomy, Cystoscopy(Not Applicable) - Cecelia Shelton MD, FACOG Surgeon Cecelia Shelton MD, FACOG Glass Cleaner Dr. Shay Estimated Blood Loss 75 Findings Consistent with Post-Op Diagnosis Specimens Specimen Description: A. Uterus, cervix and bilateral fallopian tubes Drains Toscano Catheter
[2019-04-20] MEDS ORDERED: ePHEDrine sulfate 50 MG/ML AMP IV PRN (10:49)
[2019-04-20] MEDS ORDERED: ATROPINE SULFATE 0.1 MG/ML 10ML SYR IV PRN (10:49)
[2019-04-20] MEDS ORDERED: METOCLOPRAMIDE HCL INJ 5 MG/ML 2 ML VIAL IV PRN (10:49)
[2019-04-20] MEDS ORDERED: HYDROmorphone INJ 2 MG/ML SYR/VIAL IV PRN (10:49)
[2019-04-20] MEDS ORDERED: fentaNYL citrate 100 MCG/2 ML VIAL ONE (10:49)
[2019-04-20] MEDS: fentaNYL citrate 100 MCG/2 ML VIAL IV PRN ×2 (10:52→11:00)
[2019-04-20] MEDS ORDERED: METOPROLOL TARTRATE 1 MG/ML VIAL IV STA ×2 (11:34→11:52)
[2019-04-20] MEDS ORDERED: METOPROLOL TARTRATE 1 MG/ML VIAL IV ONE (11:35)
--- NOTE | 2019-04-20 13:45 | Anesthesiology Progress Note ---
Date of Service April 20, 2019 Anesthesia Post Procedure Vital Signs Vital Signs: Temp Pulse Pulse Pulse Resp BP BP 04/20/19 13:29 119 H 16 04/20/19 13:05 37.0 C 121 H 16 04/20/19 12:30 37.3 C 127 H 16 04/20/19 12:00 36.8 C 113 H 15 04/20/19 11:54 130 H 114/77 04/20/19 11:50 112 H 20 04/20/19 11:46 127 H 117/72 04/20/19 11:40 123 H 18 04/20/19 11:37 146 H 122/81 04/20/19 11:30 135 H 18 04/20/19 11:20 120 H 15 04/20/19 11:10 115 H 16 04/20/19 11:00 110 H 12 04/20/19 10:50 103 H 16 04/20/19 10:40 121 H 17 04/20/19 10:30 97 H 15 04/20/19 10:20 105 H 14 04/20/19 10:11 36.0 C L 106 H 16 04/20/19 06:25 36.9 C 92 H 18 118/80 BP Pulse Ox Pulse Ox 04/20/19 13:29 110/72 95 04/20/19 13:05 115/75 96 04/20/19 12:30 107/73 98 98 04/20/19 12:00 123/88 99 04/20/19 11:54 04/20/19 11:50 122/86 99 04/20/19 11:46 04/20/19 11:40 122/81 98 04/20/19 11:37 04/20/19 11:30 124/87 98 04/20/19 11:20 125/82 98 04/20/19 11:10 127/79 99 04/20/19 11:00 120/86 98 04/20/19 10:50 116/69 98 04/20/19 10:40 114/81 97 04/20/19 10:30 124/82 98 04/20/19 10:20 105/73 96 04/20/19 10:11 108/70 98 04/20/19 06:25 96 Pain Intensity Abdomen: Pain Intensity: 5 Transfer of Care Handoff Completed per policy Notes Mental Status: alert / awake / arousable and participated in evaluation Patient Amnestic to Procedure: Yes Nausea / Vomiting: adequately controlled Pain: adequately controlled Airway Patency, RR, SpO2: stable & adequate BP & HR: stable & adequate Hydration State: stable & adequate Anesthetic Complications: no major complications apparent
[2019-04-20] MEDS ORDERED: METOPROLOL TARTRATE 25 MG TAB PO SCH (15:15)
[2019-04-20 15:51] LABS: Basophils # (auto) 0.01 K/uL (0-0.2); Basophils % (auto) 0.1 %; Hematocrit (blood only) 38.4 % (37-47); Hemoglobin 12.9 g/dL (12.0-16.0); Immature Granulocytes # (auto) 0.06 K/uL (0.00-0.02); Immature Granulocytes % (auto) 0.3 %; Lymphocytes # (auto) 0.48 K/uL (1.2-3.4); Lymphocytes % (auto) 2.6 %; Mean Corpuscular Hemoglobin 28.9 pg (25-34); Mean Corpuscular Volume 85.9 fL (80-100); Mean Platelet Volume 10.9 fL (7.4-10.4); Monocytes # (auto) 0.35 K/uL (0.11-0.59); Monocytes % (auto) 1.9 %; Neutrophils # (auto) 17.62 K/uL (1.4-6.5); Neutrophils % (auto) 95.1 %; Platelet Count 197 K/uL (130-400); RDW Standard Deviation 43.3 fL (36.4-46.3); Red Blood Count 4.47 M/uL (4.2-5.4); White Blood Count 18.52 K/uL (4.8-10.8)
--- NOTE | 2019-04-20 15:54 | Operative Report (OR) ---
DATE OF OPERATION: 04/20/2019 PREOPERATIVE DIAGNOSES: 1. Dysmenorrhea. 2. Dysfunctional uterine bleeding. 3. Failed ablation. POSTOPERATIVE DIAGNOSES: 1. Dysmenorrhea. 2. Dysfunctional uterine bleeding. 3. Failed ablation. PROCEDURES: 1. Total laparoscopic hysterectomy and bilateral salpingectomy per da Anu assist. 2. Cystoscopy. SURGEON: Cecelia Shelton MD. CELL STRIPPER FINAL: Abimael Shay MD. ANESTHESIA: General per endotracheal tube. ESTIMATED BLOOD LOSS: 75 mL. FLUIDS: 1700 mL. URINE OUTPUT: 700 mL of very slightly green-tinged urine drained from the bladder at the end of the procedure. INDICATIONS: Tiffany is a 28-year-old white female, 3, para 3 with tubal ligation and a history of x3 who had an endometrial ablation approximately a year ago that worked for a short time, but then she had increasing dysfunctional bleeding associated with dysmenorrhea. She declined other hormonal therapies and desires to proceed with definitive therapy. FINDINGS: There were some adhesions of the omentum to the anterior abdominal wall. The uterus was slightly abnormally shaped with a little bit more prominent right sided horn than a left-sided horn. Tubes and ovaries were normal bilaterally with evidence of tubal ligation. COMPLICATIONS: None. DRAINS: Toscano. DISPOSITION: To recovery room in stable condition. DESCRIPTION OF PROCEDURE: The patient was taken to the operating room where she was identified verbally and by bracelet. She was placed in dorsal supine position where general anesthesia was induced without difficulty. She was then placed in dorsal lithotomy position [facility]. Her arms were carefully tucked at her sides. Her chest was protected with a pad. The header up was placed. She was prepped and draped in normal sterile fashion. Timeout was held, identifying correct patient, procedure, positioning, preoperative antibiotic. There were no concerns. Attention was turned to the vagina where a speculum was placed after a Toscano catheter had been placed. The anterior lip of the cervix was grasped with single tooth tenaculum. The uterus sounded to 7 cm, dilated to #23 Hegar dilator. A VCare uterine manipulator was placed into the uterus and it was sewed to the cervix with 1-0 Vicryl suture at 9 o'clock. Gloves were then changed. Attention was then turned to the abdomen where 2 cm above the umbilicus, an incision was made. A Veress needle was placed through this, opening pressure 3 mmHg. The abdomen was insufflated with 3 liters of carbon dioxide gas. An 11 mm trocar was placed through this. Intraabdominal placement was confirmed via direct visualization. Then under direct visualization, after the patient was placed into Trendelenburg position, two 8 mm trocars were placed in bilateral lower quadrants and an 11 mm left upper quadrant trocar. The pelvis was evaluated with the above-noted findings. The da Anu hair or beauty salon assistant device was hooked up to the patient. Unfortunately, the camera would not fit down the 11 mm port and so a 12 mm port was changed out and then the camera was placed through this. Transport Technician returned to the console where first using sharp hot jing, the omental adhesions to the anterior abdominal wall were taken down. Then using hot scissors, the tubes, first on the right and then on the left were removed from the ovary; there was minimal tubal stump at the cornu. First on the right and then on the left, the tubo-ovarian ligaments and the round ligaments were taken down and the bladder flap was created anteriorly. There was some scarring of the bladder, but it was minimal and the bladder flap was pushed down. Then, the uterine arteries were cauterized with bipolar cautery and cut with hot jing. Once this was done, the colpotomy incision was made in 365 degrees using hot jing. The uterine specimen was removed from the vagina. The cuff was then closed with 2-0 V-Loc sutures in 2 layers, one starting from the left going to the right, the second starting from the right going to the left. The glove was removed from the vagina and no air was heard. The pelvis was copiously irrigated. Cystoscopy was then performed using a 70-degree scope. Both ureteral orifices were visualized and found to be effluxing urine, although it was not very blue at the time after giving methylene blue. The bladder dome was evaluated and there were no stitches noted. The cystoscopy was then discontinued. The first Toscano had been removed. A second Toscano was placed sterilely. Then, 4 mL of Tisseel was placed over the cuff and the anterior bladder. All instruments were removed from the abdomen. The gas was released. The da Anu hair or beauty salon assistant device was removed from the patient. The trocars were removed. Deep fascial stitch of 0 Vicryl was placed at the supraumbilical incision. All incisions were then closed with 4-0 Vicryl in subcuticular fashion. All incisions were infiltrated with 0.5% Marcaine and treated with Dermabond. All sponge, lap and needle counts were correct x2. The patient tolerated the procedure well and was taken to the recovery room in stable condition. I attest to the content of the Intraoperative Record and any orders documented therein. Any exceptions are noted below. MTDD
[2019-04-20 15:58] LABS: Mean Corpuscular Hgb Conc 33.6 g/dL (32-36)
[2019-04-20] MEDS: LACTATED RINGER'S 1,000 ML IV SCH ×2 (16:09→23:51)
[2019-04-20] MEDS: IBUPROFEN 600 MG TAB PO PRN ×2 (16:10→20:21)
--- NOTE | 2019-04-20 16:37 | Gynecologic Progress Note ---
Date of Service April 20, 2019 Assessment & Plan (1) S/P laparoscopic hysterectomy: stable from postop standpoint. No active bleeding. h/h stable. (2) Tachycardia: Just gave dose of metoprolol. Getting EKG. Spoke with Dr. Sawyer about the patient telling him history and events. He suspects just a result of increased catecholine release and stress of surgery. May be a little dehydrated as well. Recommend hydration. See how she responds to po dose of metoprolol. will consult him if abnl EKG of any significant change in her status. Made patient aware of the plan. Admission and Anticipated Discharge Date Admission Date: April 20, 2019 Subjective Patient notes that she feels her heart is racing and she feels at time it is irregular. She is 6 hours out from her uncomplicated TLH with ebl 75cc. Toscano removed at about 2 pm. first time they got up to the BR, seh got very lightheaded, felt nauseated and passed out briefly on return to the bed. No void. Second attempt went with pulse ox, hr went up to 140, she again felt poorly, voided 400cc, and got back to bed, no fainting. She notes any time she sits up her heart rate goes up and she feels poorly. Denies cp/sob. She notes a hx of tachycardia, followed by Dr. Jarrell. ON metoprolol 50mg in am and 75 mg in pm. Took am dose. When tachy in PACU got lopressor 10mg iv. Just gave her po dose of metoprolol 75mg. Got some zofran just now for nausea, but notes she is starving. Had 700cc out in the or and then another 1200cc out in the PACU--she had a dose of lasix in or to help with cysto, 10mg. No significant blood in the toilet. Review of Systems Review of Systems: All systems reviewed & are unremarkable except as noted in HPI & below Physical Exam Constitutional: WD/WN, vitals as above Cardiovascular: regular rate, no skipping beats noted when I took her pulse for over a minute Results & Data ([facility]) Vital Signs (Past 12 Hours) Vital Signs Temp Pulse Pulse Pulse Resp BP BP 04/20/19 15:33 37.0 C 114 H 16 04/20/19 15:00 103 H 04/20/19 14:00 37.0 C 118 H 16 04/20/19 13:29 119 H 16 04/20/19 13:05 37.0 C 121 H 16 04/20/19 12:30 37.3 C 127 H 16 04/20/19 12:00 36.8 C 113 H 15 04/20/19 11:54 130 H 114/77 04/20/19 11:50 112 H 20 04/20/19 11:46 127 H 117/72 04/20/19 11:40 123 H 18 04/20/19 11:37 146 H 122/81 04/20/19 11:30 135 H 18 04/20/19 11:20 120 H 15 04/20/19 11:10 115 H 16 04/20/19 11:00 110 H 12 04/20/19 10:50 103 H 16 04/20/19 10:40 121 H 17 04/20/19 10:30 97 H 15 04/20/19 10:20 105 H 14 04/20/19 10:11 36.0 C L 106 H 16 04/20/19 06:25 36.9 C 92 H 18 118/80 BP Pulse Ox Pulse Ox 04/20/19 15:33 106/68 96 04/20/19 15:00 111/75 04/20/19 14:00 108/73 96 04/20/19 13:29 110/72 95 04/20/19 13:05 115/75 96 04/20/19 12:30 107/73 98 98 04/20/19 12:00 123/88 99 04/20/19 11:54 04/20/19 11:50 122/86 99 04/20/19 11:46 04/20/19 11:40 122/81 98 04/20/19 11:37 04/20/19 11:30 124/87 98 04/20/19 11:20 125/82 98 04/20/19 11:10 127/79 99 04/20/19 11:00 120/86 98 04/20/19 10:50 116/69 98 04/20/19 10:40 114/81 97 04/20/19 10:30 124/82 98 04/20/19 10:20 105/73 96 04/20/19 10:11 108/70 98 04/20/19 06:25 96 PG Care Time/CCT Total # of Minutes Spent Total Time Spent with Patient: Total time spent is greater than 50% in coordination of care (as documented) at patient's floor/unit and/or counseling patient: Coding Level of Care Code None Diagnoses S/P laparoscopic hysterectomy Z90.710 Tachycardia R00.0
[2019-04-20] MEDS: OXYCODONE/ACETAMINOPHEN 5mg/325mg TAB PO PRN ×2 (17:36→22:18)
[2019-04-20] MEDS: CHECK SCOPOLAMINE PATCH PLACEMENT SCH (20:23)
[2019-04-21] MEDS: CHECK SCOPOLAMINE PATCH PLACEMENT SCH ×3 (00:15→08:48)
[2019-04-21] MEDS ORDERED: COUGH DROP (SUGAR FREE) LOZ 24 LOZ/1 BOX BUCCAL ONE (04:26)
[2019-04-21] MEDS: IBUPROFEN 600 MG TAB PO PRN ×2 (04:28→08:36)
--- NOTE | 2019-04-21 07:57 | Gynecologic Progress Note ---
Date of Service April 21, 2019 Assessment & Plan (1) Tachycardia: (2) S/P laparoscopic hysterectomy: tachycardia resolved. Ready for d/c after breakfast. Reviewed d/c instructions. Call with any concerns. f/u in office in 2 weeks. 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 Admission and Anticipated Discharge Date Admission Date: April 20, 2019 Subjective Feeling much better this am. Sitting up in bed. Had large emesis last night and has felt well since. again hungry and awaiting breakfast. Does not feel heart racing any longer. Has been up to the BR several times now without issues. No bleeding. Ready to go home. No gas Review of Systems Review of Systems: All systems reviewed & are unremarkable except as noted in HPI & below Physical Exam Constitutional: WD/WN, vitals as above Respiratory: normal respiratory effort, lungs clear to auscultation Cardiovascular: RRR, no murmur, no edema Gastrointestinal (Abdomen): Inspection/Auscultation: + abdominal surgical scar (c/d/i); abdomen not distended Percussion/Palpation: abdomen soft; abdomen nontender and no guarding Psychiatric: A+Ox3, euthymic affect Results & Data ([facility]) Vital Signs (Past 12 Hours) Vital Signs Temp Pulse Resp BP Pulse Ox 04/21/19 04:10 36.5 C 95 H 17 110/66 96 04/20/19 23:50 36.6 C 80 16 95/57 L 96 04/20/19 20:20 36.6 C 85 17 102/64 96 PG Care Time/CCT Total # of Minutes Spent Total Time Spent with Patient: Total time spent is greater than 50% in coordination of care (as documented) at patient's floor/unit and/or counseling patient: Coding Level of Care Code 77263 Subseq Hosp Care Lvl 1 Diagnoses Tachycardia R00.0 S/P laparoscopic hysterectomy Z90.710
[2019-04-21] MEDS: OXYCODONE/ACETAMINOPHEN 5mg/325mg TAB PO PRN (08:37)
[2019-04-21] MEDS ORDERED: VENLAFAXINE HCL XR 75 MG CAPXR PO SCH (09:00)
[2019-04-21] MEDS ORDERED: PANTOprazole 40 MG TAB PO SCH (09:00)
[2019-04-21] MEDS ORDERED: METOPROLOL TARTRATE 50 MG TAB PO SCH (09:00)
[2019-04-21] MEDS ORDERED: METOPROLOL TARTRATE 25 MG TAB PO SCH (21:00)
--- NOTE | 2019-04-23 12:06 | Electrocardiogram Report ---
Test Reason : Blood Pressure : / mmHG Vent. Rate : 106 BPM Atrial Rate : 106 BPM P-R Int : 154 ms QRS Dur : 082 ms QT Int : 320 ms P-R-T Axes : 047 042 087 degrees QTc Int : 425 ms Sinus tachycardia Cannot rule out Anterior infarct , age undetermined , likely lead placement Otherwise normal ECG When compared with ECG of 21-SEP-2018 19:06, Nonspecific T wave abnormality now evident in Lateral leads Confirmed by Josep Hale ([id number]) on 04/23/2019 12:05:19 PM Referred By: Cecelia Shelton Confirmed By:Josep Hale
--- NOTE | 2019-04-23 19:27 | Discharge Summary (DS) ---
ADMIT DIAGNOSES: 1. Failed ablation. 2. Dysmenorrhea and dysfunctional uterine bleeding. DISCHARGE DIAGNOSES: Same and tachycardia. PROCEDURES: Total laparoscopic hysterectomy with bilateral salpingectomies and cystoscopy. HISTORY: The patient is a 28-year-old white female 3, para 3, x3 with tubal ligation who presents for a total laparoscopic hysterectomy, bilateral salpingectomies. The patient had an ablation in March of 2017 at [facility] for menorrhagia. She had previously had a Mirena but was lots of bleeding and did not want to try that again. Does not do well on OCPs secondary to nausea. The patient saw me in the summer with onset of heavy bleeding and severe cramping and has had this issue since. Ultrasound was normal, not showing hematometra. Limited options for this patient including Depo-Provera, patch or ring or hysterectomy. After considering and discussing with her family she desires to proceed with hysterectomy. She declines all other hormonal options. The patient has a history of LEEP in 2017, but normal Paps since with her last Pap in 2019. For the rest of patient's detailed history and physical, please see her history and physical. ASSESSMENT: This is a 28-year-old white female 3, para 3, x3 with tubal ligation with failed ablation, dysmenorrhea, and dysfunctional uterine bleeding who presents for surgical management. HOSPITAL COURSE: The patient was admitted. She underwent a total laparoscopic hysterectomy, bilateral salpingectomy via da Anu assist with cystoscopy. ESTIMATED BLOOD LOSS: 75 mL FINDINGS AT THE TIME OF SURGERY: Revealed a normal uterus, tubes, and ovaries bilaterally. The patient's postoperative course was complicated by tachycardia. The patient has a history of tachycardia in the past and is on metoprolol. She received Lopressor in the immediate PACU area, presented back to the floor with some mild tachycardia in the 100s to 110s. Unfortunately, when she tried to ambulate to get up to go to the bathroom, she became very symptomatic and had increased tachycardia and was unable to do so. I had a discussion with Dr. Sawyer with cardiology and after obtaining EKG noting just sinus tachycardia it was decided that this was likely a stress response from the catecholamines released at surgery and possible slight dehydration from being n.p.o. overnight. Decision was made to maintain the patient on IV fluids and monitor her overnight. She did receive her oral doses of p.o. metoprolol and her tachycardia gradually resolved. She was able to ambulate. She voided without difficulty after the removal of her Toscano catheter and tolerated a regular diet. In the morning of postoperative day #1, she was feeling well and was discharged home.
== END 2019-04-21 09:19 | disposition home or self-care (01) ==
LOC: ASU 05:42 → 4N 05:42